=== PATIENT | female | born 1990 | race Two or more races ===

== ENCOUNTER → 2017-09-20 | Outpatient (CLI) | payer OTHER ==
--- NOTE | 2017-09-20 14:11 | REP ---
LEFT KNEE: Pain with running. FINDINGS: The compartments are symmetric and relatively well maintained. There is no acute fracture or destructive osseous lesion. Signed by Karl Rodriguez DO 09/20/2017 02:19 P
--- NOTE | 2017-09-24 18:52 | REP ---
REASON: Pain with running. FINDINGS: The hip joint spaces are symmetric and relatively well maintained. There is no acute fracture or destructive osseous lesion. Signed by Karl Rodriguez DO 09/24/2017 07:40 P
== END ==
LOC: M LRY 12:54
PROVIDERS: ATTEND Nurse Practitioner Family
DX: M25.552 Pain in left hip (principal); M25.562 Pain in left knee
CPT/HCPCS: 73502; 73564; G0463

== ENCOUNTER 2019-09-19 02:55 | Inpatient (IN) | payer OTHER ==
[~2019-09-19] VITALS: Ht 157.5 cm; Wt 83.8 kg
[2019-09-19] VITALS (31 sets, daily range): BP systolic 112–176; BP diastolic 56–93
[2019-09-19] MEDS ORDERED: NALBUPHINE HCL 10 MG/ML AMP (J2300) IM ONE (04:45)
[2019-09-19] MEDS ORDERED: PROMETHAZINE INJ 25 MG/ML VIAL (J2550) IV ONE (04:45)
[2019-09-19] MEDS ORDERED: NALBUPHINE HCL 10 MG/ML AMP (J2300) IV ONE (04:45)
--- NOTE | 2019-09-19 04:53 | HPEPDOC ---
Obstetrical History & Physical General Date of Admission Sep 19, 2019 at 04:09 History of Present Illness patient is a 28 yo G1 @37+5wks gestation presents with concern for ROM at 0030 this AM. Having regular painful contractions. denies VB. +FM. Chief Complaint: Contractions, term, LOF, term Information Provided By: Patient Age: 28 : 1 Term: 0 Pre-term: 0 Abortions: 0 Livin Care Care: Good Care Dating Final EDC: Oct 05, 2019 Final EDC for Daily Update: Oct 05, 2019 Final EDC by: LMP, 1st trimester (US) LMP: Dec 29, 2018 Past Medical History Past Obstetrical History : Past Obstetrical History: Primgravida DRAPERY HEAD FORMER History: No pertinent history Past Medical History Medical History history of SVT Surgical History: Other (cardiac ablation) Family History Significant Family History: No pertinent family hx Social History Social history denies tob/etoh/illicit rx Marital Status: Family situation: Spouse/partner home * Smoker: non-smoker Alcohol: Denies Drugs: denies Imunizations Tdap status: current Influenza Status: declined Allergies Coded Allergies: apple (Verified Allergy, Unknown, RASH, 09/19/19) latex (Verified Allergy, Unknown, RASH, 09/19/19) Physical Examination Physical Examination GENERAL: Alert and oriented times three. BREAST: . ABDOMEN: Gravid and non-tender to touch. FETUS: Is vertex (VTX) by sterile vaginal examination (SVE), fetus is vertex (VTX) by [place]. HEART RATE: Regular rate and rhythm. LUNGS: Clear to auscultation (CTA). EXTREMITIES: Non pitting edema. no erythema/tenderness. speculum exam: grossly ruptured with pooling EFW: 3300gm by [place] Vital Signs/I&O Vital Signs Date Time Temp Pulse Resp B/P (MAP) Pulse Ox O2 Delivery O2 Flow Rate FiO2 09/19/19 03:24 94 161/77 (105) Laboratory Data 24H LABS Laboratory Tests 2 09/19/19 04:12: Serology Scanned Report Hepatitis B Testing Pertinent Laboratoy Data Blood Type: A+ RBC Antibody Screen: Negative HIV: Negative Hepatitis B: Negative Rapid Plasma Reagin: Nonreactive Rubella: Immune Chlamydia/Gonorrhea: Negative (h/o Chlamydia, treated, noah neg in jun 2019) Group B Streptococcus: Negative Anatomy Ultrasound Placenta Location: Anterior Normal Anatomy: Yes Placenta Previa: No Vaginal Examination Dilation: 3 cm Effacement: 80% Station: 0 Cervical Consistency: Soft Cervical Position: Middle Presentation: Cephalic presentation Assessment Heart Rate (FHR): 135 Variability: Moderate Accelerations: Positive Decelerations: None Tocometer Contractions: Yes Frequency: regular, every 2-5 min. Assessment/Plan Assessment patient is a 28 yo G1 @37+5wks gestation by lmp c/w 8wks US RHETT([id number]) with SROM. Discussed using oxytocin for augmentation of labor. Discussed monitoring with external monitors for contractions and heart rate with internal monitor as clinically indicated. Risk of delivery for maternal/ concerns, risk of infection requiring iv antibiotics, bleeding needing blood transfusion and associated risk of anaphylactic reaction and transmission of blood borne pathogens such as HIV and hepatitis, use of forceps or vacuum to assist in vaginal delivery in an emergency or maternal exhaustion and associated risks of injuring to baby and worsen maternal laceration, episiotomy discussed with patient. Plan Admit and orient. 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 Diet: clear liquid Group B Streptococcus (GBS) negative Labs and intravenous (IV) per unit protocol. pelvis adequate for trial of labor C-S as indicated VIDAL FARIAS DO Sep 19, 2019 04:48
[2019-09-19 05:02] LABS: BASO % 0.4 % (0.0-1.0); EOS % 0.2 % (0.0-3.0); HEMATOCRIT 37.3 % (36.0-47.0); HEMOGLOBIN 12.8 g/dl (12.0-15.5); LYMPH # 1.7 10^3/uL (1.5-5.0); LYMPH % 14.9 % (24.0-44.0); MEAN CORPUSCULAR HEMOGLOBIN 29.6 pg (27.0-33.0); MEAN CORPUSCULAR HGB CONC 34.3 g/dl (32.0-36.5); MEAN CORPUSCULAR VOLUME 86.3 fl (80.0-96.0); MONO # 0.4 10^3/uL (0.0-0.8); MONO % 3.5 % (0.0-5.0); NEUTROPHILS # 9.1 10^3/uL (1.5-8.5); NEUTROPHILS % 80.4 % (36.0-66.0); PLATELET COUNT, AUTOMATED 235 10^3/uL (150-450); RED BLOOD COUNT 4.32 10^6/uL (4.00-5.40); WHITE BLOOD COUNT 11.3 10^3/uL (4.0-10.0)
[2019-09-19 05:23] LABS: ALBUMIN 2.7 GM/DL (3.2-5.2); ALT/SGPT 12 U/L (12-78); BILIRUBIN,TOTAL 0.2 MG/DL (0.2-1.0); BLOOD UREA NITROGEN 15 MG/DL (7-18); CALCIUM LEVEL 9.1 MG/DL (8.5-10.1); CARBON DIOXIDE LEVEL 19 MEQ/L (21-32); CHLORIDE LEVEL 105 MEQ/L (98-107); GLOMERULAR FILTRATION RATE > 60.0 (>60); GLUCOSE, FASTING 93 MG/DL (70-100); POTASSIUM SERUM 3.9 MEQ/L (3.5-5.1); SODIUM LEVEL 136 MEQ/L (136-145); TOTAL PROTEIN 7.1 GM/DL (6.4-8.2)
[2019-09-19] MEDS ORDERED: FENTANYL 2MCG/ML ROPIVACAINE 0.2% IN 0.9% NACL 100ML IVBAG As Ordered ONE (07:40)
[2019-09-19] MEDS: FENTANYL/ROPIVACAINE/NACL BAG 100 ML EPIDURAL SCH ×2 (08:00→14:45)
[2019-09-19] MEDS ORDERED: ePHEDrine SULFATE 25 MG/5 ML(5MG/ML) SYRINGE IV PRN (08:30)
[2019-09-19] MEDS ORDERED: EPIDURAL/PCA KEYS XX PRN (08:30)
[2019-09-19] MEDS ORDERED: diphenhydrAMINE INJ 50MG/ML VIAL (J1200) IV PRN (08:30)
[2019-09-19] MEDS ORDERED: EPIDURAL COMMENT XX SCH (08:30)
[2019-09-19] MEDS ORDERED: REFRIGERATOR IV KEYS XX PRN (08:30)
[2019-09-19] MEDS ORDERED: LACTATED RINGER'S 1000 ML IV PRN (08:30)
[2019-09-19] MEDS ORDERED: ONDANSETRON 4MG/2ML VIAL (J2405) IV PRN (08:30)
[2019-09-19] MEDS ORDERED: NALOXONE INJ 0.4 MG/1 ML VIAL (J2310) IV PRN (08:30)
--- NOTE | 2019-09-19 09:04 | IPNPDOC ---
Text Note Date of Service The patient was seen on 09/19/19. NOTE Accepted care of Ms. Stiles this morning. She's a 28 yo at 37+5 weeks gestation who was admitted for SROM, clear fluid, earlier this morning. Membrane rupture occurred at ~0030 and she presented to L&D ~0400. She has had regular, painful contractions. She has a history of a cardiac ablation for SVT and is overweight but otherwise her is uncomplicated. She is GBS negative. She had elevated BP on admission and toxemia labs were obtained which were negative. BPs not severe range. Thalia just received an epidural and is much more comfortable. She reports feeling anxious but otherwise well. Cervix: 7/C/-2 per RN exam. FHR tracing: Cat I with moderate variability, +accels, no decs. Contractions regular on toco. Thalia is progressing well on her own power. Plan to recheck in 2-4 hours or sooner PRN. All patient questions answered. Hebert Anrdew DO VS,Luis, I+O VS, Luis, I+O Laboratory Tests 09/19/19 04:56 Vital Signs Date Time Temp Pulse Resp B/P (MAP) Pulse Ox O2 Delivery O2 Flow Rate FiO2 09/19/19 03:24 94 161/77 (105) HEBERT ANDREW DO Sep 19, 2019 09:04
--- NOTE | 2019-09-19 12:02 | IPNPDOC ---
Text Note Date of Service The patient was seen on 09/19/19. NOTE Presented to room for assessment of progress. Cervix: C/C/0. FHR mostly Cat I but some Cat II, some early and variable decels, moderate variability, overall reassuring. Contractions regular. Thalia desires medication for GERD. Will prescribe protonix. She is progressing very well on her own power. Anticipate beginning of 2nd stage soon. DO Kamran VS,Luis, I+O VS, Luis, I+O Laboratory Tests 09/19/19 04:56 Vital Signs Date Time Temp Pulse Resp B/P (MAP) Pulse Ox O2 Delivery O2 Flow Rate FiO2 09/19/19 10:54 88 18 135/71 (92) 99 09/19/19 07:39 98.4 HEBERT GARCIA DO Sep 19, 2019 12:02
[2019-09-19] MEDS ORDERED: PANTOPRAZOLE 40MG INJ (PROTONIX) (C9113) IV ONE (13:00)
[2019-09-19] MEDS ORDERED: LR 1,000 ML IV SCH (14:20)
[2019-09-19] MEDS ORDERED: OXYTOCIN DRIP 30 UNITS in IV 1 EA IV SCH ×2 (14:30→16:40)
[2019-09-19 16:37] LABS: CORD GAS ABE V -8.2; CORD GAS HCO3 V 16.3 MEQ/L; CORD GAS O2 SAT V 64.1 %; CORD GAS PCO2 V 31.4 mmHg; CORD GAS PH V 7.332 UNITS; CORD GAS PO2 V 27.7 mmHg; CORD GAS SBC V 17.3 MEQ/L; CORD GAS TCO2 V 17.2 MEQ/L
[2019-09-19 16:38] LABS: CORD GAS ABE A -7.6; CORD GAS HCO3 A 18.7 MEQ/L; CORD GAS O2 SAT A 66.8 %; CORD GAS PCO2 A 40.6 mmHg; CORD GAS PH A 7.281 UNITS; CORD GAS PO2 A 26.5 mmHg; CORD GAS SBC A 17.7 MEQ/L; CORD GAS TCO2 A 19.9 MEQ/L
[2019-09-19] MEDS ORDERED: IBUPROFEN 800 MG TAB PO PRN (16:45)
[2019-09-19] MEDS ORDERED: RHOGAM 300 MCG (1500 IU) INJ (J2790) IM SCH (16:45)
[2019-09-19] MEDS ORDERED: MEASLES,MUMPS,RUBELLA VACCINE INJ (MMR-II) (90707) SC SCH (16:45)
[2019-09-19] MEDS ORDERED: DOCUSATE SODIUM 100 MG CAP PO PRN (16:45)
[2019-09-19] MEDS ORDERED: ACETAMINOPHEN TAB 650MG DOSE (2X325MG) PO PRN (16:45)
[2019-09-19] MEDS ORDERED: DIBUCAINE 1% OINTMENT 30GM TOP PRN (16:45)
[2019-09-19] MEDS ORDERED: IBUPROFEN 600 MG TAB PO PRN (16:45)
[2019-09-19] MEDS ORDERED: PROMETHAZINE 25 MG TAB PO PRN (16:45)
[2019-09-19] MEDS ORDERED: ACETAMINOPHEN 500 MG TAB PO PRN (16:45)
--- NOTE | 2019-09-19 16:59 | DNPDOC ---
[facility] Delivery Note Delivery Note DATE OF DELIVERY: [id number] at ~~1615 PREDELIVERY DIAGNOSIS: 37+5 weeks gestation and labor POST DELIVERY DIAGNOSIS: Delivered. 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 Andrew ANESTHESIA: Epidural ESTIMATED BLOOD LOSS: 300 mL. FINDINGS: Viable female , 5lbs 14oz, Apgars 9/9, ROP position with delivery DELIVERY SUMMARY: I pushed with Thalia over the last ~2 hours. She was moving the baby consistently, but slowly. head felt to be OP. Pitocin was ultimately started and got up to 6mU to help with pushing. After approximately 3.5 hours of pushing her infant delivered. presentation was ROP with restitution to ROT. The left anterior shoulder delivered with gentle traction followed easily by the remainder of the body. The infant was dried and stimulated on the field and a bulb suction was used. The three vessel umbilical cord was then clamped and cut by the FOB under my direction and after appropriat e time delay. The was then taken over to the warmer under the care of the baby nurse per the mother's request. Cord gases were drawn. Third stage was then completed with gentle traction on the cord and it was productive of an intact placenta. The uterine fundus was firmed with massage and pitocin was administered via IV bolus. Inspection of the vagina, perineum, and cervix revealed a midline 2nd degree perineal laceration. This was repaired in the usual fashion with 3-0 vicryl suture. There was excellent cosmesis and hemostasis after the repair. The fundus was palpated again and was firm. Sponge, instrument, and needle counts were correct X2. Mother and stable when I left the room. DO RADHA Ashley CHRISTOPHER J. DO Sep 19, 2019 16:59
[2019-09-19] MEDS ORDERED: PILL CUTTER 1 EACH XX PRN (21:45)
[2019-09-20 06:18] VITALS: BP 135/90
--- NOTE | 2019-09-20 07:31 | IPNPDOC ---
Progress Note Date of Service: Sep 20, 2019 Progress Note Thalia is a 28 yo G1 now P1 who is PPD#1 s/p uncomplicated yesterday late afternoon after being admitted for labor. No acute events overnight. Thalia feels well this morning, just sore. She is ambulating, voiding on her own, and has minimal lochia. She is tolerating a regular diet and has no n/v. She also denies any fevers/chills, SOB, chest pain, dysuria. Vitals - VSS, afebrile, normotensive, non tachycardic General - AAOX3, sitting up in bed, NAD, pleasant and conversant Abdomen - Fundus firm at U-2. No fundal tenderness Extremities - Trace edema in lower extremities UO - appropriate. Thalia is doing well and is making an appropriate recovery. Continue to encourage ambulation and today. Continue routine care. Anticipate d/c home tomorrow. She was given her home medications. Hebert Andrew DO VS, I&O, 24H, Fishbone Vital Signs/I&O Vital Signs Date Time Temp Pulse Resp B/P (MAP) Pulse Ox O2 Delivery O2 Flow Rate FiO2 09/20/19 06:18 99.0 104 18 135/90 (105) 09/19/19 10:54 99 I&O- Last 24 Hours up to 6 AM 09/20/19 06:00 Output Total 1250 ml Balance -1250 ml Laboratory Data 24H LABS Laboratory Tests 2 09/19/19 16:26: Cord Arterial Blood pH 7.281, Cord Arterial Blood PCO2 40.6, Cord Arterial Blood PO2 26.5, Cord Arterial Blood HCO3 18.7, Cord Arterial Blood Total CO2 19.9, Cord Arterial Blood Base Excess -7.6, Cord Arterial Base Excess (Standard 17.7, Cord Arterial Bld Oxygen Saturation 66.8, Cord Venous Blood pH 7.332, Cord Venous Blood PCO2 31.4, Cord Venous Blood PO2 27.7, Cord Venous Blood HCO3 16.3, Cord Venous Blood Total CO2 17.2, Cord Venous Base Excess (Actual) -8.2, Cord Venous Base Excess (Standard) 17.3, Cord Venous Blood Oxygen Saturation 64.1 HEBERT ANDREW DO Sep 20, 2019 07:31
[2019-09-20] MEDS: PRENATAL VITAMINS CHEWABLE TABLET PO SCH (09:40)
[2019-09-20 18:00] VITALS: BP 158/93
[2019-09-20] MEDS ORDERED: IBUPROFEN 100 MG/5 ML SUSP UDC DYE FREE PO PRN ×2 (21:00)
[2019-09-20] MEDS ORDERED: ACETAMINOPHEN 325 MG/10.15 ML UDC PO PRN ×2 (21:00→21:15)
[2019-09-21 06:00] VITALS: BP 137/88
[2019-09-21] MEDS: PRENATAL VITAMINS CHEWABLE TABLET PO SCH (08:42)
--- NOTE | 2019-09-21 11:01 | IPNPDOC ---
Progress Note Date of Service: Sep 21, 2019 Day#: 2 Progress Note PPD 2 Thalia is a 28 yo G1 now P1 who is PPD#2 s/p uncomplicated after being admitted for labor. She feels well this morning, just sore. She is ambulating, voiding spontaneously without isuse, and has minimal lochia. She is tolerating a regular diet and has no n/v. She also denies any fevers/chills, SOB, chest pain, dysuria. Vitals - VSS, afebrile, normotensive, non tachycardic General - AAOX3, sitting up in bed, NAD, pleasant and conversant. Breast feeding. Abdomen - Fundus firm at U-2. No fundal tenderness Extremities - Trace edema in lower extremities Assessment: Thalia is a 28 yo G1 now P1 who is PPD#2 s/p uncomplicated after being admitted for labor. Vitals wnl, benign exam. Hemodynamically stable with no evidence of infection. Plan: -Discharge to home -tylenol and ibuprofen prn pain -encourage -discussed return precautions: fevers/chills, increasing abdominal pain, foul smelling discharge, breast redness/pain, very heavy vaginal bleeding, depression -no heavy lifting, vaginal rest 6 weeks -routine [facility] Dr. Berenice Smith MD VS, I&O, 24H, Fishbone Vital Signs/I&O Vital Signs Date Time Temp Pulse Resp B/P (MAP) Pulse Ox O2 Delivery O2 Flow Rate FiO2 09/21/19 06:00 99.0 87 18 137/88 (104) 99 Room Air Berenice Smith MD Sep 21, 2019 11:01
[2019-09-21] MEDS ORDERED: ACET325S6 PO (11:05)
[2019-09-21] MEDS ORDERED: DIBU10OI TOP (11:05)
[2019-09-21] MEDS ORDERED: IBUP100S57 PO (11:05)
--- NOTE | 2019-09-21 11:06 | DS.PDOC ---
Discharge Summary General Date of Admission Sep 19, 2019 at 04:09 Date of Discharge Sep 21, 2019 Attending Physician: Berenice Smith MD Discharge Summary PROCEDURES PERFORMED DURING STAY: spontaneous vaginal delivery ADMITTING DIAGNOSES: 1. Active labor at term DISCHARGE DIAGNOSES: 1. Active labor at term COMPLICATIONS/CHIEF COMPLAINT: LABOR. HISTORY OF PRESENT ILLNESS/HOSPITAL COURSE: Thalia is a 28 yo G1 now P1 who is PPD#2 s/p uncomplicated after being admitted for labor. She had a benign course and at time of discharge her vitals were wnl with benign exam. She is hemodynamically stable with no evidence of infection. DISCHARGE MEDICATIONS: Please see below. ALLERGIES: Please see below. PHYSICAL EXAMINATION ON DISCHARGE: Vitals - VSS, afebrile, normotensive, non tachycardic General - AAOX3, sitting up in bed, NAD, pleasant and conversant. Breast feeding. Abdomen - Fundus firm at U-2. No fundal tenderness Extremities - Trace edema in lower extremities DIET: regular DISCHARGE PLAN/Instructions: -Discharge to home -tylenol and ibuprofen prn pain -encourage -discussed return precautions: fevers/chills, increasing abdominal pain, foul smelling discharge, breast redness/pain, very heavy vaginal bleeding, depression -no heavy lifting, vaginal rest 6 weeks -routine visit in 6 weeks at [facility] DISPOSITION: Home DISCHARGE CONDITION: Stable TIME SPENT ON DISCHARGE: Greater than [address] Berenice Smith MD Vital Signs/I&Os Vital Signs Date Time Temp Pulse Resp B/P (MAP) Pulse Ox O2 Delivery O2 Flow Rate FiO2 09/21/19 06:00 99.0 87 18 137/88 (104) 99 Room Air Discharge Medications Scheduled PRN Acetaminophen (Acetaminophen) 325 Mg/10.15 Ml Solution, 975 MG PO Q6HP PRN for PAIN OR FEVER Dibucaine (Dibucaine) 28 Gm Oint...g., 0 DOSE TOP Q4HP PRN for PAIN Ibuprofen (Children's Ibuprofen) 100 Mg/5 Ml Oral.susp, 800 MG PO Q8HP PRN for PAIN LEVEL 6-10 Allergies Coded Allergies: apple (Verified Allergy, Unknown, RASH, 09/19/19) latex (Verified Allergy, Unknown, RASH, 09/19/19) Berenice Smith MD Sep 21, 2019 11:04
== END 2019-09-21 12:30 | disposition home or self-care (01) | DRG 807 ==
LOC: M LDO 02:55 → M LDI 04:09 → M OBS 18:40
PROVIDERS: ADMIT Obstetrics & Gynecology; ATTEND Obstetrics & Gynecology
PROC: 10E0XZZ Delivery of Products of Conception, External Approach (ICD-10-PCS; principal; 2019-09-19)
PROC: 0KQM0ZZ Repair Perineum Muscle, Open Approach (ICD-10-PCS; 2019-09-19)
DX: O70.1 Second degree perineal laceration during delivery (principal); Z37.0 Single live birth; Z3A.37 37 weeks gestation of pregnancy